=== PATIENT | male | born 1940 | race Asian ===

== ENCOUNTER 2018-12-09 05:31 | Day surgery (SDC) | payer OTHER ==
[2018-12-09] MEDS: CYCLOPENTOLATE/PHENYLEPH 2 ML OPH OPER (06:39)
[2018-12-09] MEDS: TROPICAMIDE 1% 15 ML OPH OPER (06:39)
[2018-12-09] MEDS: DICLOFENAC 0.1% 2.5 ML OPH OPER (06:40)
[2018-12-09] MEDS: MOXIFLOXACIN 0.5% 3 ML OPH OPER (06:40)
[2018-12-09] MEDS: SOD CHLORIDE 0.9% 1,000 ML IV (06:40)
[2018-12-09] MEDS ORDERED: NA HYALURONATE/CHONDROITIN 0.5 ML SYG (06:58)
[2018-12-09] MEDS ORDERED: GENTAMICIN 80 MG INJ (06:58)
[2018-12-09] MEDS ORDERED: TETRACAINE 0.5% 4 ML OPH (06:58)
[2018-12-09] MEDS ORDERED: EPINEPHrine 1 MG INJ (06:58)
[2018-12-09] MEDS: CEFAZOLIN 1 GM INJ (06:58)
[2018-12-09] MEDS ORDERED: MOXIFLOXACIN 0.5% 3 ML OPH (06:58)
[2018-12-09] MEDS: DEXAMETHASONE 4 MG/ML 1 ML INJ (06:58)
[2018-12-09] MEDS: CARBACHOL 0.01% 1.5 ML OPH INJ (06:58)
[2018-12-09] MEDS ORDERED: LIDOCAINE 4% (MPF) 5 ML INJ (06:58)
[2018-12-09] MEDS ORDERED: MIDAZOLAM 1 MG/ML 2 ML INJ (07:21)
[2018-12-09] MEDS ORDERED: LIDOCAINE 2% (SDV) 5 ML INJ (07:43)
[2018-12-09] MEDS ORDERED: PROPOFOL 20 ML (07:43)
[2018-12-09] MEDS ORDERED: FENTAnyl 50 MCG/ML VIAL (07:46)
[2018-12-09] MEDS ORDERED: FENTAnyl 50 MCG/ML VIAL IV (08:00)
[2018-12-09] MEDS ORDERED: hydrALAzine 20 MG INJ IV (08:00)
[2018-12-09] MEDS ORDERED: DIPHENHYDRAMINE 50 MG INJ IV (08:00)
[2018-12-09] MEDS ORDERED: OXYCODONE/ACETAMINOPHEN (5/325) TAB PO (08:00)
[2018-12-09] MEDS ORDERED: MEPERIDINE 25 MG INJ IV (08:00)
[2018-12-09] MEDS ORDERED: ONDANSETRON 4 MG INJ IV (08:00)
[2018-12-09] MEDS ORDERED: PROCHLORPERAZINE 10 MG INJ IV (08:00)
[2018-12-09] MEDS ORDERED: HYDROmorphONE 1 MG/5 ML IV SYRINGE IV ×2 (08:00)
== END 2018-12-09 09:07 | disposition home or self-care (01) ==
LOC: SDS 05:31
DX: H25.032 Anterior subcapsular polar age-related cataract, left eye (principal); I10 Essential (primary) hypertension; E78.00 Pure hypercholesterolemia, unspecified; I25.10 Atherosclerotic heart disease of native coronary artery without angina pectoris; Z79.82 Long term (current) use of aspirin
CPT/HCPCS: 66984